=== PATIENT | female | born 1990 | race Caucasian/White ===

== ENCOUNTER 2024-05-24 12:04 | Inpatient (IN) | payer SELFPAY ==
[2024-05-24] MEDS: LORazepam 2 MG/ML 1ML VIAL IM ONE (12:50)
[2024-05-24] MEDS: OLANZapine INTRAMUSCULAR 10MG VIAL IM ONE (12:50)
[2024-05-24] MEDS ORDERED: MED REC CURRENTLY UNOBTAINABLE XX SCH (14:10)
[2024-05-24 14:37] LABS: HEMATOCRIT 38.2 % (36.0-47.0); HEMOGLOBIN 13.1 g/dl (12.0-15.5); MEAN CORPUSCULAR HEMOGLOBIN 31.5 pg (27.0-33.0); MEAN CORPUSCULAR HGB CONC 34.3 g/dl (32.0-36.5); MEAN CORPUSCULAR VOLUME 91.8 fl (80.0-96.0); PLATELET COUNT, AUTOMATED 239 10^3/uL (150-450); RED BLOOD COUNT 4.16 10^6/uL (4.00-5.40); WHITE BLOOD COUNT 9.7 10^3/uL (4.0-10.0)
[2024-05-24 14:59] LABS: ETHYL ALCOHOL (ETHANOL) < 0.003 % (0.000-0.010)
[2024-05-24 15:01] LABS: ALBUMIN 4.3 G/DL (3.2-5.2); ALKALINE PHOSPHATASE 53 U/L (46-116); ALT/SGPT 26 U/L (7.0-40); AST/SGOT 37 U/L (<34); BILIRUBIN,DIRECT 0.2 MG/DL (<0.4); BILIRUBIN,TOTAL 0.7 MG/DL (0.3-1.2); BLOOD UREA NITROGEN 5 MG/DL (9-23); CALCIUM LEVEL 9.8 MG/DL (8.5-10.1); CARBON DIOXIDE LEVEL 24 MMOL/L (20-31); CHLORIDE LEVEL 106 MMOL/L (98-107); CREATININE FOR GFR 0.76 MG/DL (0.55-1.30); GLOMERULAR FILTRATION RATE > 60.0 (>60); GLUCOSE, FASTING 84 MG/DL (60-100); POTASSIUM SERUM 3.9 MMOL/L (3.5-5.1); SALICYLATE LEVEL < 3.0 MG/DL (<30); SODIUM LEVEL 138 MMOL/L (136-145); TOTAL PROTEIN 7.1 G/DL (5.7-8.2)
[2024-05-24 15:03] LABS: THYROID STIMULATING HORMONE 1.166 uIU/ML (0.55-4.78)
[2024-05-24 15:09] LABS: HCG, SERUM QUALITATIVE NEGATIVE (NEGATIVE)
[2024-05-24] MEDS ORDERED: LORazepam 2 MG/ML 1ML VIAL IM ONE (16:15)
[2024-05-24] MEDS ORDERED: OLANZapine INTRAMUSCULAR 10MG VIAL IM ONE (16:15)
[2024-05-24 17:17] LABS: AMPHETAMINES LEVEL URINE NEGATIVE (NEGATIVE); BARBITURATES URINE NEGATIVE (NEGATIVE); BENZODIAZEPINES URINE NEGATIVE (NEGATIVE)
[2024-05-24 17:18] LABS: CANNABINOIDS URINE POSITIVE (NEGATIVE); COCAINE METABOLITE URINE NEGATIVE (NEGATIVE); METHADONE URINE NEGATIVE (NEGATIVE); OPIATES URINE NEGATIVE (NEGATIVE); PHENCYCLIDINE URINE NEGATIVE (NEGATIVE)
[2024-05-26] MEDS ORDERED: HOME MED LIST COMPLETE! XX SCH (07:50)
[2024-05-27] MEDS: LORazepam 2 MG TAB PO ONE (10:51)
[2024-05-27] MEDS ORDERED: MAALOX 30 ML SUSP *UDC PO PRN (14:50)
[2024-05-27] MEDS ORDERED: IBUPROFEN 400MG TAB PO PRN (14:50)
[2024-05-27] MEDS ORDERED: diphenhydrAMINE 25MG CAP PO PRN (14:50)
[2024-05-27] MEDS ORDERED: MOM 30ML SUSPENSION UDC PO PRN (14:50)
[2024-05-27] MEDS ORDERED: LORazepam 2 MG TAB PO PRN (14:50)
[2024-05-27] MEDS ORDERED: ACETAMINOPHEN TAB 650MG DOSE (2X325MG) PO PRN (14:50)
[2024-05-27 16:32] VITALS: BP 110/70; TEMP 98
[2024-05-27] MEDS: traZODone 50 MG TAB PO PRN (22:10)
[2024-05-28 06:34] VITALS: BP 123/68; TEMP 99; O2SAT 100
[2024-05-28] MEDS: OLANZapine 5 MG TAB PO SCH (09:00)
[2024-05-28] MEDS: DIVALPROEX 250MG TAB PO SCH (21:00)
[2024-05-29 06:33] VITALS: BP 130/60; TEMP 98.2; O2SAT 100
[2024-05-29 18:09] VITALS: BP 142/76; TEMP 98.3
[2024-05-30 06:24] VITALS: BP 111/75; TEMP 98.1; O2SAT 100
[2024-05-30 16:24] VITALS: BP 122/58; TEMP 98.2; O2SAT 100
[2024-05-31 06:31] VITALS: BP 133/65; TEMP 97.7; O2SAT 100
== END 2024-05-31 12:48 | disposition home or self-care (01) | DRG 751 ==
LOC: M ED 12:04 → UNDOADMIN 18:36 → M ED INP 18:36 → M PSY 05-27 16:04
PROVIDERS: ADMIT Student in an Organized Health Care Education/Training Program; ATTEND Student in an Organized Health Care Education/Training Program
DX: F29 Unspecified psychosis not due to a substance or known physiological condition (principal); Z78.1 Physical restraint status; R45.851 Suicidal ideations; F20.9 Schizophrenia, unspecified; F41.9 Anxiety disorder, unspecified; F12.90 Cannabis use, unspecified, uncomplicated; F31.9 Bipolar disorder, unspecified; R00.2 Palpitations